=== PATIENT | female | born 1985 | race Caucasian/White ===

== ENCOUNTER → 2022-01-15 13:58 | Outpatient (CLI) | payer OTHER, SELFPAY ==
--- NOTE | ~2022-01-15 | XR_ITS ---
EXAMINATION: XR pelvis 1-2V DATE: 01/15/2022 14:45 INDICATION: Polyarthralgia TECHNIQUE: An anteroposterior view of the pelvis was obtained. COMPARISON: None. FINDINGS: Right-sided acetabular dysplasia with increased right-sided [place] angle of 14 degrees compared with a normal left-sided angle of 5 degrees. There is corresponding mild lateral uncovering of the right femoral head. Joint spaces remain normal and symmetric. Mild hypertrophic change with small marginal ossified at the lateral margin of the right femoral head. No fracture or suspected osteonecrosis. Felix ateral sacroiliac joint spaces are normal. A few phleboliths in the left hemipelvis. IMPRESSION: 1. 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 Reviewed, dictated and finalized at location A. IMPRESSION: 1. Mild acetabular dysplasia with likely secondary mild osteoarthritis at the r ight hip.
--- NOTE | ~2022-01-15 | XR_ITS ---
EXAMINATION: XR foot LT 2V, XR foot RT 2V DATE: 01/15/2022 14:45 INDICATION: Polyarthralgia TECHNIQUE: 1. Dorsoplantar and lateral views of the left foot were obtained. 2. Dorsoplantar and lateral views of the right foot were obtained. COMPARISON: None. FINDINGS: Alignment is normal at the bilateral feet. No fracture. Joint spaces are normal. No cortical erosions or periosteal reaction. The bilateral feet. Soft tissues are unremarkable. IMPRESSION: 1. Negative bilateral foot radiographs. Reviewed, dictated and finalized at location A. IMPRESSION: 1. Negative bilateral foot radiographs.
== END ==
PROVIDERS: PCP Physician Assistant; Visit Provider Physician Assistant Medical
DX: M25.50 Pain in unspecified joint (principal); R76.8 Other specified abnormal immunological findings in serum; M16.11 Unilateral primary osteoarthritis, right hip; Q65.89 Other specified congenital deformities of hip
CPT/HCPCS: 72170; 73620